=== PATIENT | female | born 1985 | race Two or more races ===

== ENCOUNTER 2022-07-21 07:49 | Emergency (ER) | payer SELFPAY ==
[~2022-07-21] VITALS: Ht 157.5 cm; Wt 62.8 kg
[2022-07-21 09:04] LABS: Alcohol, Urine < 3.0 mg/dL (0-10); Amphetamine Screen, Urine POSITIVE (NEGATIVE); Barbiturate Scree,Urine NEGATIVE (NEGATIVE); Benzodiazephine Screen, Urine NEGATIVE (NEGATIVE); Cannabinoid Screen, Urine NEGATIVE (NEGATIVE); Cocaine Screen, Urine NEGATIVE (NEGATIVE); Phencyclidine Screen, Urine NEGATIVE (NEGATIVE)
[2022-07-21 09:06] LABS: Urine Bacteria NONE SEEN /hpf (None Seen); Urine Blood Negative /uL (Negative); Urine Mucus MANY (None Seen); Urine Specific Gravity 1.046 (1.001-1.035); Urine WBC 156 /hpf (0 - 5)
[2022-07-21 09:11] LABS: Basophils # (auto) 0.1 10 ^3/uL (0-0.2); Mean Corpuscular Hemoglobin 21.6 pg (28.0-32.0); White Blood Cell 9.1 10^3/uL (4.4-10.8)
[2022-07-21 09:11] LABS: Opiate Scree,Urine NEGATIVE (NEGATIVE)
[2022-07-21 09:13] LABS: Basophils % (auto) 1.4 % (0.0-2.0); Eosinophils # (auto) 0.2 10 ^3/uL (0-0.8); Eosinophils % (auto) 1.7 % (0.0-7.0); Hematocrit 37.1 % (36.0-46.0); Hemoglobin 11.7 g/dL (12.2-16.2); Lymphocytes # (auto) 2.7 10 ^3/uL (0.4-5.4); Lymphocytes % (auto) 29.5 % (10.0-50.0); Mean Corpuscular Hgb Conc. 31.6 g/dL (32.0-36.0); Mean Corpuscular Volume 68.3 fL (80.0-100.0); Monocytes # (auto) 0.5 10 ^3/uL (0-1.3); Monocytes % (auto) 5.2 % (0.0-12.0); Neutrophils # (auto) 5.7 10 ^3/uL (1.6-8.6); Neutrophils % (auto) 62.2 % (37.0-80.0); Red Blood Cells 5.44 10^6/uL (4.0-5.20)
[2022-07-21 09:15] LABS: Red Cell Distribution Width 20.5 % (11.8-14.3)
[2022-07-21 09:45] LABS: Calcium 9.2 mg/dL (8.5-10.1); Potassium 4.1 mmol/L (3.5-5.1)
[2022-07-21 09:49] LABS: BUN/Creatinine Ratio 21.3; Bilirubin, Total 0.5 mg/dL (0.2-1.0); Total Protein 8.3 g/dL (6.4-8.2)
[2022-07-21] MEDS ORDERED: LORazepam 2MG/ML-1ML VIAL IV ONE (17:00)
[2022-07-21] MEDS ORDERED: SODIUM CHLORIDE 0.9% 1,000 ML IVB ONE (17:00)
[2022-07-21] MEDS ORDERED: ONDANSETRON HCL 4 MG/2 ML VIAL IV ONE (17:00)
[2022-07-21] MEDS ORDERED: METHADONE HCL 10 MG TAB PO ONE ×2 (17:00)
[2022-07-21] MEDS ORDERED: NITR-87 PO (18:09)
[2022-07-21] MEDS ORDERED: cefTRIAXone 1GM/50ML D5W 50 ML IV ONE (18:15)
[2022-07-21 19:29] VITALS: BP 146/79
== END 2022-07-21 19:35 | disposition left against medical advice (07) ==
LOC: ER 07:49
DX: F15.23 Other stimulant dependence with withdrawal (principal); N39.0 Urinary tract infection, site not specified; Z79.899 Other long term (current) drug therapy
CPT/HCPCS: 36415; 80053; 80307; 81001; 85025; 93005; 96365; 96375; 99284; J0696; J2060; J2405; J7030